=== PATIENT | female | born 1975 | race Caucasian/White ===

== ENCOUNTER → 2017-09-29 11:53 | Outpatient (CLI) | payer BC, SELFPAY ==
--- NOTE | 2017-09-29 11:56 | HPBI_ITS ---
MAMMOGRAPHY - BILATERAL SCREENING 3-D AGNIESZKA SYNTHESIS REASON FOR EXAM: Female, 41 years old. Bilateral Screening 3-D tomosynthesis PERTINENT HISTORY: Aunt with breast cancer.. TECHNIQUE: 2-D mammograms and 3-D Agnieszka synthesis of the breast (s) were performed. CAD was performed. COMPARISON: 11/14/2014 FINDINGS: The breast composition is heterogeneously dense that can obscure small breast masses. Scattered benign calcifications are seen. No dense spiculated masses or suspicious microcalcifications are identified. No architectural distortion is identified. There is no skin thickening or retraction. There has been no significant change since the prior study. HPBI/SCREENING MAMM (CAD), BILAT IMPRESSION: No mammographic signs of malignancy. Routine yearly mammograms recommended. ASSESSMENT CATEGORY: BIRADS Category 2: Benign. A letter regarding these results will be sent to the patient by the facility within 30 days. FOLLOW UP RECOMMENDATION: Yearly follow up mammogram recommended. (A) Approximately 10% of breast cancers are not detected by mammography. A normal mammogram should not delay biopsy of a clinically suspicious abnormality. Electronically Signed: Ru Lowe MD at 9:16 EDT , Service support ,
== END ==
PROVIDERS: Family Provider Family Medicine; PCP Physician Assistant; Visit Provider Obstetrics & Gynecology
DX: Z12.31 Encounter for screening mammogram for malignant neoplasm of breast (principal)
CPT/HCPCS: 77063; 77067

== ENCOUNTER 2017-11-19 15:33 | Emergency (ER) | payer BC, SELFPAY ==
[2017-11-19 15:34] VITALS: BP 154/102; PULSE 97; RESP 18; TEMP 36.6; O2SAT 100; BMI 36.3
--- NOTE | 2017-11-19 15:34 | EKG12_ITS ---
Test Reason : CP Blood Pressure : / mmHG Vent. Rate : 097 BPM Atrial Rate : 097 BPM P-R Int : 160 ms QRS Dur : 102 ms QT Int : 374 ms P-R-T Axes : 060 -11 033 degrees QTc Int : 474 ms Normal sinus rhythm Nonspecific ST abnormality Abnormal ECG Confirmed by ANTOINETTE GOODSON, JAYNA ([id number]), content editor ROSA ELENA KILLIAN ([id number]) on 11/21/2017 1:29:44 PM Referred By: Confirmed By:JAYNA CURRY MD
--- NOTE | 2017-11-19 16:12 | ED.DCSUM_ITS ---
- ER Visit Summary Date of Service: 11/19/17 Chief Complaint: Palpitations, tingling in her thumb, index and mildly long finger of both hands. History of Present Illness: The patient is a 42 F who was recently diagnosed with carpal tunnel syndrome. She was placed in a wrist splint. She states she is only been wearing the splint since Monday. She is also taking 2 Advil tablets every 12 hours. She has noted no improvement. She denies history of thyroid disease, she denies diabetes; however, she states she was diagnosed with gestational diabetes and was told that she may develop diabetes. 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 She denies any radicular pain. She denies neck pain. She denies headache. She denies double vision, blurred vision loss of vision. No trouble with speech or swallowing. She denies any shortness of breath or pleuritic chest pain. She denies nausea, vomiting or diarrhea. She denies dysuria, frequency, urgency or hematuria. She has not awakened from sleep with tingling in her fingers. She denies history of DVT or PE. She has no risk factors. She does report hair loss the past month possible 3-5 pound weight gain and fatigue with cold intolerance. She has not noticed that her hair is coarser than normal. Physical Examination: Vital signs remarkable for an elevated blood pressure of 152/102. She states she has had elevated blood pressures at home recently. Head is atraumatic normocephalic. Pupils are equal round reactive. Extraocular muscles are intact. TMs are pearly white with landmarks noted. Nares patent with no drainage. Posterior pharynx without erythema or exudate. Uvula is midline. There is no dysphonia or dysphasia. Trachea is midline. There is no stridor with auscultation of the neck. Heart is regular without murmur, gallop or rub. S1 and S2 are normal. Lungs are clear to auscultation with good movement of air bilaterally. Abdomen is soft nontender. Bowel sounds are present normal. Patient is alert and oriented ?3. Motor is 5 over 5. Sensory is intact. DTRs are symmetric with no clonus or Babinski sign. Cranial 2 through 12 are intact. Cerebellar testing is normal. Phalen and Tinel sign were negative. She did have a delayed relaxation phase of her ankle reflex. Test Results: CBC is unremarkable with no evidence of anemia, leukocytosis etc. Electronic panel is unremarkable. Glucose is slightly elevated 108. TSH is normal, 0.79. Monitor reveals a sinus rhythm without ectopy. Emergency Department Course and Treatment: Since patient has not complained of chest pain and palpitations was placed on a monitor. EKG is not indicated. Because of the cold intolerance, hair loss, possible weight gain with delayed relaxation of the ankle phase of TSH was obtained to evaluate for hypothyroidism. Because she has been drinking bottles/jugs of water complains of tingling will obtain a BMP to assess for hyponatremia. Treatment Plan: Appropriate home-going instructions for palpitation and fatigue Disposition: Discharged to home Impression: 1. Palpitations unknown etiology 2. Fatigue generalized weakness unknown etiology 3. Paresthesia thumb index finger uncertain etiology This note was generated with [employer] dictation software. It may contain incorrect words, spelling, and punctuation that were not noted in review of the chart prior to signing ED Disposition - Plan for ED Patient: Disposition: Home or Assisted Living Chief Complaint: Chest Pain Instructions: ED Palpitations, ED Weakness UKO, ED Hypertension Poss Referrals: Kaden Salcedo PA [Primary Care Provider] - Keep Bobbi appointment
[2017-11-19 16:24] LABS: Absolute Neutrophil Count 4.2 X10^3/uL (2.0-7.7); Basophil# 0.02 X10^3/uL; Basophil% 0.3 % (0-1); Eosinophil# 0.06 X10^3/uL; Eosinophils% 0.8 % (0-5); Hematocrit 44.6 % (37-47); Hemoglobin 14.6 g/dl (12.0-15.0); Lymphocyte % 33.9 % (19-41); Mean Corp Hgb Conc 32.7 g/gl (32-36); Mean Corpuscular Hgb 31.4 pg (27.0-32.0); Mean Corpuscular Volume 95.9 fL (81-99); Mean Platelet Vol. 11.1 fl (6.2-12.0); Monocyte# 0.36 X10^3/uL; Monocyte% 5.1 % (0-10); Neutrophil # 4.23 X10^3/uL (2.7-7.7); Neutrophil % 59.8 % (47-70); Platelet Count 193 K/mm3 (150-450); RBC Distribution Width CV 13.1 % (11.6-14.6); RBC Distribution Width SD 44.9 fl (35.1-43.9); Red Blood Count 4.65 M/mm3 (4.2-5.4); White Blood Count 7.1 K/mm3 (4.4-11.0)
[2017-11-19 16:25] LABS: POSITIVE COUNT NO; POSITIVE DIFFERENTIAL NO; POSITIVE MORPHOLOGY NO
[2017-11-19 16:52] LABS: Anion Gap 9 (5-15); BUN 20 mg/dL (7-18); BUN/Creat Ratio 25.3 RATIO (10-20); Calcium,Total 9.1 mg/dL (8.5-10.1); Chloride 105 mmol/L (98-107); Creatinine, Serum 0.79 mg/dL (0.55-1.02); EST Glomerular Filtration Rate 84 mL/min (>60); Est Glom Filt Rate - Afr Amer 102 mL/min (>60); Estimated Creatinine Clearance 91.67 ml/min; Glucose 108 mg/dL (74-106); Potassium 3.8 mmol/L (3.5-5.1); Sodium Level 141 mmol/L (136-145); Thyroid Stim Hormone (TSH) 0.79 uIU/mL (0.358-3.74)
[2017-11-19 17:14] VITALS: BP 142/83; PULSE 71; RESP 16; O2SAT 97
== END 2017-11-19 17:15 | disposition home or self-care (01) ==
PROVIDERS: Emergency Provider Emergency Medicine; Family Provider Physician Assistant; PCP Physician Assistant
DX: R00.2 Palpitations (principal); R53.83 Other fatigue; R53.1 Weakness; R20.2 Paresthesia of skin; E66.9 Obesity, unspecified; Z68.36 Body mass index [BMI] 36.0-36.9, adult; Z87.891 Personal history of nicotine dependence
CPT/HCPCS: 80048; 84443; 85025; 93005; 99285

== ENCOUNTER → 2019-07-04 07:14 | Outpatient (CLI) | payer OTHER, SELFPAY ==
--- NOTE | 2019-07-04 07:20 | BI_ITS ---
MAMMOGRAPHY - BILATERAL SCREENING 3-D TOMOSYNTHESIS REASON FOR EXAM: Female, 43 years old. Routine screening annual mammogram PERTINENT HISTORY: History of breast cancer in mother at age 73 and maternal aunt at age 68. TECHNIQUE: 2-D mammograms and 3-D Tomosynthesis of the breast (s) were performed. CAD was performed. COMPARISON: September 30, 2007, May 13, 2016 FINDINGS: The breast composition is composed of scattered fibroglandular density. Scattered benign calcifications are seen. No dense spiculated masses or suspicious microcalcifications are identified. No architectural distortion is identified. There is no skin thickening or retraction. Stable lymph nodes. There has been no significant change since the prior study. BI/SCREEN MAMM (CAD) W/AGNIESZKA BILAT IMPRESSION: No mammographic signs of malignancy. Routine yearly mammograms recommended. ASSESSMENT CATEGORY: BIRADS Category 2: Benign. A letter regarding these results will be sent to the patient by the facility within 30 days. FOLLOW UP RECOMMENDATION: Yearly follow up mammogram recommended. (A) Approximately 10% of breast cancers are not detected by mammography. A normal mammogram should not delay biopsy of a clinically suspicious abnormality. Electronically Signed: Jose García MD at 17:44 EST , Service support ,
== END ==
PROVIDERS: Family Provider Physician Assistant; PCP Physician Assistant; Referring Provider Obstetrics & Gynecology; Visit Provider Obstetrics & Gynecology
DX: Z12.31 Encounter for screening mammogram for malignant neoplasm of breast (principal)
CPT/HCPCS: 77063; 77067

== ENCOUNTER → 2020-10-12 08:13 | Outpatient (CLI) | payer BC, SELFPAY ==
--- NOTE | 2020-10-12 08:16 | BI_ITS ---
MAMMOGRAPHY - BILATERAL SCREENING 3-D TOMOSYNTHESIS REASON FOR EXAM: Female, 44 years old. SCREENING PERTINENT HISTORY: No significant family history. TECHNIQUE: 2-D mammograms and 3-D Tomosynthesis of the breast (s) were performed. CAD was performed. COMPARISON: None. FINDINGS: The breast composition is heterogeneously dense which may obscure small masses. In the anterior third of the left breast, below and medial to the nipple, in the lower inner quadrant, there is an oval, circumscribed, isodense mass measuring 14 mm in diameter. In the anterior third of the left breast above and lateral to the nipple, in the upper outer quadrant, there is an area of architectural distortion. BI/SCRN MAMM (CAD)W/AGNIESZKA BILAT IMPRESSION: 1. Architectural distortion, left breast, as described. 2. Circumscribed mass, left breast, as described. ASSESSMENT CATEGORY: BIRADS Category 0: Incomplete, need additional imaging evaluation. FOLLOW UP RECOMMENDATION: Focal compression of the left breast in the CC and MLO orientations, and ultrasound. Approximately 10% of breast cancers are not detected by mammography. A normal mammogram should not delay biopsy of a clinically suspicious abnormality. Electronically Signed: Maikel Marques MD at 13:32 EDT Tel , Service support ,
== END ==
PROVIDERS: PCP Physician Assistant; Referring Provider Obstetrics & Gynecology; Visit Provider Obstetrics & Gynecology
DX: Z12.31 Encounter for screening mammogram for malignant neoplasm of breast (principal)
CPT/HCPCS: 77063; 77067

== ENCOUNTER → 2020-11-06 11:36 | Outpatient (CLI) | payer BC, SELFPAY ==
[2020-11-10 13:27] LABS: HPV Reflexed? NOT INDICATED
== END ==
PROVIDERS: PCP Physician Assistant; Visit Provider Obstetrics & Gynecology
DX: Z12.4 Encounter for screening for malignant neoplasm of cervix (principal)
CPT/HCPCS: 88175; G0145

== ENCOUNTER → 2023-02-03 | Outpatient (CLI) | payer OTHER, SELFPAY | END | disposition home or self-care (01) | LOC: LABSPEC 12:02 | PROVIDERS: PCP Physician Assistant; Visit Provider Nurse Practitioner Women's Health | DX: N39.0 Urinary tract infection, site not specified (principal) | CPT/HCPCS: 87086; 87088 ==

== ENCOUNTER → 2023-02-08 | Outpatient (CLI) | payer OTHER, SELFPAY ==
--- NOTE | 2023-02-08 13:51 | BI_ITS ---
MAMMOGRAPHY - BILATERAL SCREENING REASON FOR EXAM: Female, 47 years old. Routine annual screening examination. PERTINENT HISTORY: Mother with breast cancer. Aunt with breast cancer. TECHNIQUE: Digital bilateral breast agnieszka (3D mammographic acquisition) in the CC and MLO projections. 2-D mediolateral oblique (MLO) and craniocaudad (CC) views of both breasts were obtained. CAD: Full Field Digital Mammography with Computer Added Detection was performed. COMPARISON: Comparison is made with prior study dated October 12, 2020 and July 04, 2019. FINDINGS: Breast Composition: The breasts are heterogeneously dense, which may obscure small masses. There are no dominant masses or suspicious calcifications. Stable 14 mm well-defined nodule in the anterior inferior medial aspect of the left breast. Correlation with ultrasound is recommended. No other significant abnormalities are identified. BI/SCRN MAMM (CAD)W/AGNIESZKA BILAT IMPRESSION: 14 mm well-defined nodule in the anterior inferior medial aspect of the left breast. Correlation with ultrasound is recommended. ASSESSMENT CATEGORY: BIRADS Category 0: Incomplete. Need additional imaging evaluation. A letter regarding these results will be sent to the patient by the facility within 30 days. Approximately 10% of breast cancers are not detected by mammography. A normal mammogram should not delay biopsy of a clinically suspicious abnormality. [id number] Electronically Signed: Ashu Zelaya MD at 15:08 EDT ,
== END | disposition home or self-care (01) ==
LOC: OPBI 13:50
PROVIDERS: PCP Physician Assistant; Referring Provider Nurse Practitioner Women's Health; Visit Provider Nurse Practitioner Women's Health
DX: Z12.31 Encounter for screening mammogram for malignant neoplasm of breast (principal)
CPT/HCPCS: 77063; 77067

== ENCOUNTER → 2023-02-22 | Outpatient (CLI) | payer OTHER, SELFPAY ==
--- NOTE | 2023-02-22 14:09 | US_ITS ---
STUDY: ULTRASOUND BREAST - LEFT REASON FOR EXAM: Female, 47 years old. Abnormal screening mammogram. TECHNIQUE: Axial and longitudinal images of the LEFT breast were performed with a high resolution ultrasound transducer. # OF IMAGES: 38 COMPARISON: Comparison is made with prior mammogram dated February 08, 2023. FINDINGS: LEFT Breast: The inferior medial aspect of the left breast was examined with ultrasound. There is a 6 mm x 7 mm x 4 mm cyst at the 6:00 position of the breast at 6 cm from the nipple. There is also evidence of a 4 mm x 6 mm x 4 mm cyst at the 9:00 position of the breast at 3 cm from the nipple. US/Breast Limited Unilateral IMPRESSION: 2 small cysts are seen in the inferior medial aspect of the left breast. Routine mammographic follow-up recommended. ASSESSMENT CATEGORY: BIRADS Category 2: Benign. A letter regarding these results will be sent to the patient by the facility within 30 days. Electronically Signed: Ashu Zelaya MD at 10:44 EDT ,
== END | disposition home or self-care (01) ==
PROVIDERS: PCP Physician Assistant; Referring Provider Nurse Practitioner Women's Health; Visit Provider Nurse Practitioner Women's Health
DX: R92.8 Other abnormal and inconclusive findings on diagnostic imaging of breast (principal)
CPT/HCPCS: 76642

== ENCOUNTER → 2024-11-13 | Outpatient (CLI) | payer OTHER, SELFPAY ==
--- NOTE | 2024-11-13 12:47 | BI_ITS ---
EXAM: SCRN MAMM (CAD)W/AGNIESZKA BILAT 11/13/2024 CLINICAL HISTORY: F, Age 49 y/o , SCREENING TECHNIQUE: Bilateral screening digital breast tomosynthesis with 2D and 3D images. Computer aided detection. COMPARISON: Prior exam(s) dated 02/08/2023, 10/12/2020, 07/04/2019. FINDINGS: TISSUE DENSITY: The breast tissue is composed of scattered area of fibroglandular density. Bilateral Breast Mammographic Findings: No significant masses, calcifications or other abnormalities are identified. BI/SCRN MAMM (CAD)W/AGNIESZKA BILAT IMPRESSION: Right Breast: BIRADS 1 NEGATIVE. Left Breast: BIRADS 1 NEGATIVE. OVERALL FINAL ASSESSMENT: BIRADS 1 NEGATIVE. RECOMMENDATION: Routine annual follow-up in 1 Year A letter with findings and recommendations will be mailed to the patient. Reading Location: [id number]
== END | disposition home or self-care (01) ==
PROVIDERS: PCP Family Medicine; Referring Provider Family Medicine; Visit Provider Family Medicine
DX: Z12.31 Encounter for screening mammogram for malignant neoplasm of breast (principal)
CPT/HCPCS: 77063; 77067

== ENCOUNTER → 2025-05-15 | Outpatient (CLI) | payer OTHER, SELFPAY ==
[2025-05-15 17:13] LABS: AST(SGOT) 25 U/L (<=31); Alanine Aminotransfer ALT/SGPT 27 U/L (<=34); Albumin, Serum 4.4 g/dL (3.5-5.0); Alkaline Phosphatase 105 U/L (35-104); Amylase 46 U/L (28-100); Anion Gap 11 (5-15); BUN 18 mg/dL (4-19); BUN/Creat Ratio 21.5 RATIO (10-20); Calcium,Total 9.0 mg/dL (7.6-11.0); Carbon Dioxide 23.9 mmol/L (21.0-32.0); Chloride 104 mmol/L (98-108); Globulin 2.4 g/dL (2.2-4.2); Glucose 94 mg/dL (70-99); Lipase 17 U/L (13-75); Potassium 4.4 mmol/L (3.3-5.1)
== END | disposition home or self-care (01) ==
LOC: VSLAB 16:02
PROVIDERS: PCP Family Medicine; Referring Provider Nurse Practitioner Family; Visit Provider Nurse Practitioner Family
DX: R10.9 Unspecified abdominal pain (principal)
CPT/HCPCS: 36415; 80053; 82150; 83690

== ENCOUNTER → 2025-06-04 | Outpatient (CLI) | payer OTHER, SELFPAY ==
--- NOTE | 2025-06-04 09:40 | POL_PTH ---
PATIENT: LI ESPINO LOC: [facility] U#:[id number] AGE/SX: 49/F ROOM: RE06/04/[address]: ROME Avery : 1975 BED: DIS: 06/04/2025 SPEC #: [id number] RECD: 06/04/25 12:43 STATUS: AGA REQ #: [id number] PIA: 06/04/25 09:[address]: Ivonne Evans NP DEPT: SURGICAL PATHOLOGY RECD BY: Umer Manzano ENTERED: 06/04/25 14:48 SP TYPE: Polyp OTHR DR: Dr. Kevin Hatch MD Tissues: A - Uterine cervix, NOS Procedures: Surgery Specimen Level IV HEADER OPERATION: Polypectomy PRE-OP DIAGNOSIS: Cervical polyp TISSUE SUBMITTED: A- Cervical polyp MICROSCOPIC DIAGNOSIS A. Cervix, polyp, polypectomy: - Endocervical mucosal polyp, benign. MICROSCOPIC DESCRIPTION Slides are reviewed. GROSS DESCRIPTION A. Received in formalin labeled with the patient's name and date of . Designated as cervical polyp is a 0.7 x 0.6 x 0.1 cm avila to red tissue fragment. Submitted in 1 cassette. [facility] 06/04/2025 CPT:48058
[2025-06-11 14:08] LABS: HPV APTIMA, High Risk Negative (Negative)
== END | disposition home or self-care (01) ==
LOC: LABSPEC 13:46
PROVIDERS: PCP Family Medicine; Referring Provider Nurse Practitioner Women's Health; Visit Provider Nurse Practitioner Women's Health
DX: Z12.4 Encounter for screening for malignant neoplasm of cervix (principal)
CPT/HCPCS: 87624; 88175; 88305; G0145